=== PATIENT | female | born 1930 | race Caucasian/White ===

== ENCOUNTER 2017-04-30 16:55 | Inpatient (IN) ==
[2017-04-30] MEDS ORDERED: 0.9 % Sodium Chloride 1,000 ML IVC ONE (17:03)
[2017-04-30 17:19] LABS: Basophils % 0.3 %; Hematocrit 33.6 % (35.3-44.9); Hemoglobin 11.9 g/dL (11.5-15.4); Immature Granulocytes % 0.5 % (0-4); Lymphocytes # 0.8 K/mcL (0.6-4.6); Lymphocytes % 22.8 %; Mean Corpuscular HGB Conc 35.4 g/dL (31.6-35.5); Mean Corpuscular Hemoglobin 33.1 pg (28.0-33.3); Mean Corpuscular Volume 93.6 fL (83.0-100.0); Mean Platelet Volume 10.6 fL (9.4-12.4); Monocytes # 0.4 K/mcL (0.0-1.3); Monocytes % 11.5 %; Neutrophils # 2.4 K/mcL (1.6-8.9); Platelet Count 110 K/mcL (140-400); Red Blood Count 3.59 M/mcL (3.82-4.97); Segmented Neutrophils % 64.9 %
[2017-04-30 17:24] LABS: Bilirubin,Urine Negative (Negative); Blood,Urine Negative (Negative); Clarity,Urine Clear (Clear); Color,Urine Yellow (Yellow); Glucose,Urine (UA) Normal (Normal); Ketones,Urine Negative (Negative); Leukocyte Esterase,Urine Negative (Negative); Nitrite,Urine Negative (Negative); PH,Urine 6.5 pH Units (5.0-8.0); Protein,Urine Trace mg/dL (Neg-Trace); Specific Gravity,Urine 1.021 (1.010-1.025); Urobilinogen,Urine Normal (Normal)
--- NOTE | 2017-04-30 17:32 | Emergency Department Note ---
Disposition Clinical Impression: Influenza, Hypoxia, Elevated troponin Disposition: Admitted As Inpatient Condition: Good SOB HPI - General Chief Complaint: ED Shortness of Breath/Dyspnea Stated Complaint: SOB Time Seen by Provider: 04/30/17 16:59 Source: patient Mode of arrival: EMS Limitations: no limitations Nursing Notes Reviewed: Yes Vital Signs Reviewed: Yes - History of Present Illness 86-year-old female history of arthritis, hypertension presents to the ER via EMS from urgent care due to shortness of breath and cough. Patient states 5 days of cough as well as productive sputum and shortness of breath. No sick contacts. Reports fevers at urgent care will for which she received Tylenol prior to arrival. Denies any recent illness or hospitalization. She felt nauseous today and did not want to eat. No abdominal pain. No vomiting or diarrhea. No dysuria or hematuria. No other complaints. Pt Subjective Complaint: shortness of breath, cough Onset (ago): day(s) Context: recent illness Severity: moderate Consistency/Duration: constant Improves with: nothing Worsens with: nothing Associated symptoms: Reports: fever, cough, sputum production Treatment prior to arrival: none Cough present: Yes Cough Description: Involuntary Cough Frequency: Intermittent - Related Data Home oxygen amount: none Home Medications Medication Instructions Recorded Confirmed Fenofibrate [Tricor] 54 mg PO QAM 02/14/15 02/25/15 Metoprolol [Lopressor] 50 mg PO BID 02/14/15 02/25/15 Omeprazole [PriLOSEC] 20 mg PO QAM 02/14/15 02/25/15 Polyethylene Glycol 3350 [MiraLAX] 17 gm PO DAILY 02/14/15 02/25/15 TraZODone 50 mg PO HS 02/14/15 02/25/15 Previous Rx's Medication Instructions Recorded Ciprofloxacin [Cipro] 500 mg PO BID #10 tablet 02/28/15 LORazepam [Ativan] 0.5 mg PO HS #4 tablet 02/28/15 traMADol [Ultram] 50 mg PO Q6HR PRN #28 tablet 02/28/15 Allergies Allergy/AdvReac Type Severity Reaction Status Date / Time magnesium Allergy See Verified 04/30/17 16:58 Comments Penicillins [PCN] Allergy Heartburn Verified 04/30/17 16:58 aspirin AdvReac Gastrointestinal Verified 04/30/17 16:57 Upset All systems ED: reviewed and negative except as stated. Constitutional: Reports: fever, chills, weakness Cardiovascular: Denies: chest pain Respiratory: Reports: cough, dyspnea, sputum production Gastrointestinal: Reports: nausea. Denies: abdominal pain, vomiting, diarrhea Past Medical History - Past Medical History Attestation: Yes The following information was validated with the patient. Source: patient Medical history: Reports: arthritis, cancer, GERD, hypertension, liver disease, RA, TIA Surgical history: Reports: appendectomy, cancer surgery (colon) Psychiatric history: Reports: anxiety - Social History Smoking Status: Never smoker Smokeless Tobacco Status: No Alcohol use: Reports: none Drug use: Reports: none Physical Exam - General Limitations: no limitations General appearance: alert, in no apparent distress - Head Head exam: atraumatic, normocephalic, other (Abrasion over the nasal bridge) - Eye Eye exam: Present: normal appearance - ENT ENT exam: normal exam - Neck Neck exam: Present: normal inspection - Chest Chest inspection: Present: normal inspection, symmetric chest wall rise - Respiratory Respiratory exam: Present: other (Rhonchi on the right. Clear on the left) - Cardiovascular Cardiovascular exam: Present: regular rate, normal rhythm, normal heart sounds - Abdominal Exam Abdominal exam: Present: soft, Non-Tender. Absent: tenderness - Extremities Exam Extremities exam: Present: normal inspection, full ROM - Expanded Upper Extremity Exam Shoulder exam: Present: normal inspection, full ROM Arm exam: Present: normal inspection, full ROM Elbow exam: Present: normal inspection, full ROM Forearm/Wrist exam: Present: normal inspection, full ROM Hand exam: Present: normal inspection, full ROM - Expanded Lower Extremity Exam Hip/Pelvis exam: Present: normal inspection, full ROM Upper leg exam: Present: normal inspection, full ROM Knee exam: Present: normal inspection, full ROM Lower leg exam: Present: normal inspection, full ROM Ankle exam: Present: normal inspection, full ROM Foot/toe exam: Present: normal inspection, full ROM - Skin Skin exam: Present: warm, dry, intact Course Course Narrative: Patient seen and examined. Vital signs reviewed. We will obtain EKG, chest x- ray as well as labs including troponin. We will send urinalysis. She does report that she fell out of bed 2 days ago and has an abrasion over her nose. CT scan of the head and cervical spine ordered. - Reevaluation(s) Reevaluation #1: Discussed results of imaging and labs with the patient. Vital Signs Temperature 100.5 F H 04/30/17 16:59 Pulse Rate 80 04/30/17 16:59 Respiratory Rate 22 04/30/17 16:59 Blood Pressure 130/81 04/30/17 16:59 O2 Sat by Pulse Oximetry 94 04/30/17 16:59 Temperature 98.8 F 04/30/17 20:44 Pulse Rate 75 04/30/17 20:44 Respiratory Rate 16 04/30/17 20:44 Blood Pressure 143/61 04/30/17 20:44 O2 Sat by Pulse Oximetry 93 04/30/17 20:44 Oxygen Delivery Oxygen Delivery Room Air Shortness of Breath/Dyspnea - MDM Narrative Medical decision making narrative: 86-year-old female presents to the ER from urgent care due to cough shortness of breath fever and hypoxia. Noted to be in the high 80s at urgent care. Also febrile at that time. Symptoms for 5 days. She has had a cough with productive sputum. She is well-appearing here. She also had a fall out of her bed a few days ago. Imaging reviewed. She does have an elevated troponin of 0.05. Currently chest pain-free. Admitted to the hospitalist service for influenza, hypoxia, elevated troponin. - Lab Data Lab results reviewed: Yes I reviewed the patient's lab results. Result diagrams: 04/30/17 17:11 04/30/17 17:11 Lab Results 04/30/17 04/30/17 04/30/17 Range/Units 17:11 17:11 17:11 WBC 3.6 L (4.3-11.1) K/mcL RBC 3.59 L (3.82-4.97) M/mcL Hgb 11.9 (11.5-15.4) g/dL Hct 33.6 L (35.3-44.9) % MCV 93.6 (83.0-100.0) fL MCH 33.1 (28.0-33.3) pg MCHC 35.4 (31.6-35.5) g/dL RDW 12.0 (11.5-14.5) % Plt Count 110 L (140-400) K/mcL MPV 10.6 (9.4-12.4) fL Immature Gran % 0.5 (0-4) % Seg Neutrophils % 64.9 % Lymphocytes % 22.8 % Monocytes % 11.5 % Eosinophils % 0.0 % Basophils % 0.3 % Neutrophils # 2.4 (1.6-8.9) K/mcL Lymphocytes # 0.8 (0.6-4.6) K/mcL Monocytes # 0.4 (0.0-1.3) K/mcL Eosinophils # 0.0 (0.0-0.6) K/mcL Basophils # 0.0 (0.0-0.2) K/mcL Sodium 131 L (136-145) mEq/L Potassium 3.2 L (3.5-5.1) mEq/L Chloride 103 (98-107) mEq/L Carbon Dioxide 21 L (23-29) mEq/L BUN 7 L (8-23) mg/dL Creatinine 0.71 (0.60-1.20) mg/dL Est GFR ( Amer) > 60 (> 60) Est GFR (Non-Af Amer) > 60 (> 60) BUN/Creatinine Ratio 10 (6-26) Glucose 113 H (70-105) mg/dL Calculated Osmolality 271 L (280-300) Calcium 7.4 L (8.6-10.3) mg/dL Total Bilirubin (0.3-1.0) mg/dL Direct Bilirubin (0.0-0.2) mg/dL Indirect Bilirubin (0.0-1.2) mg/dL AST (13-39) Units/L ALT (7-52) Units/L Alkaline Phosphatase (34-104) Units/L Troponin I 0.05 H* (< 0.04) ng/mL B-Natriuretic Peptide (Less than 100) pg/mL Serum Total Protein (6.4-8.9) g/dL Albumin (3.5-5.7) g/dL Globulin (2.4-3.5) g/dL Albumin/Globulin Ratio (1.1-2.2) Urine Color (Yellow) Urine Clarity (Clear) Urine pH (5.0-8.0) pH Units Ur Specific [place] (1.010-1.025) Urine Protein (Neg-Trace) mg/dL Urine Glucose (UA) (Normal) mg/dL Urine Ketones (Negative) mg/dL Urine Blood (Negative) Urine Nitrite (Negative) Urine Bilirubin (Negative) Urine Urobilinogen (Normal) mg/dL Ur Leukocyte Esterase (Negative) Urine Microscopic RBC (0-3) per hpf Urine Microscopic WBC (0-3) per hpf Ur Squamous Epith Cells (None-Few) per lpf Urine Bacteria (None-Few) per hpf Hyaline Casts (None-Few) per lpf Ur Culture Indicated? (NO) 04/30/17 04/30/17 04/30/17 Range/Units 17:11 17:11 17:15 WBC (4.3-11.1) K/mcL RBC (3.82-4.97) M/mcL Hgb (11.5-15.4) g/dL Hct (35.3-44.9) % MCV (83.0-100.0) fL MCH (28.0-33.3) pg MCHC (31.6-35.5) g/dL RDW (11.5-14.5) % Plt Count (140-400) K/mcL MPV (9.4-12.4) fL Immature Gran % (0-4) % Seg Neutrophils % % Lymphocytes % % Monocytes % % Eosinophils % % Basophils % % Neutrophils # (1.6-8.9) K/mcL Lymphocytes # (0.6-4.6) K/mcL Monocytes # (0.0-1.3) K/mcL Eosinophils # (0.0-0.6) K/mcL Basophils # (0.0-0.2) K/mcL Sodium (136-145) mEq/L Potassium (3.5-5.1) mEq/L Chloride (98-107) mEq/L Carbon Dioxide (23-29) mEq/L BUN (8-23) mg/dL Creatinine (0.60-1.20) mg/dL Est GFR ( Amer) (> 60) Est GFR (Non-Af Amer) (> 60) BUN/Creatinine Ratio (6-26) Glucose (70-105) mg/dL Calculated Osmolality (280-300) Calcium (8.6-10.3) mg/dL Total Bilirubin 0.4 (0.3-1.0) mg/dL Direct Bilirubin 0.2 (0.0-0.2) mg/dL Indirect Bilirubin 0.2 (0.0-1.2) mg/dL AST 50 H (13-39) Units/L ALT 26 (7-52) Units/L Alkaline Phosphatase 31 L (34-104) Units/L Troponin I (< 0.04) ng/mL B-Natriuretic Peptide 87 (Less than 100) pg/mL Serum Total Protein 5.1 L (6.4-8.9) g/dL Albumin 3.1 L (3.5-5.7) g/dL Globulin 2.0 L (2.4-3.5) g/dL Albumin/Globulin Ratio 1.6 (1.1-2.2) Urine Color Yellow (Yellow) Urine Clarity Clear (Clear) Urine pH 6.5 (5.0-8.0) pH Units Ur Specific [place] 1.021 (1.010-1.025) Urine Protein Trace (Neg-Trace) mg/dL Urine Glucose (UA) Normal (Normal) mg/dL Urine Ketones Negative (Negative) mg/dL Urine Blood Negative (Negative) Urine Nitrite Negative (Negative) Urine Bilirubin Negative (Negative) Urine Urobilinogen Normal (Normal) mg/dL Ur Leukocyte Esterase Negative (Negative) Urine Microscopic RBC 0-3 (0-3) per hpf Urine Microscopic WBC 0-3 (0-3) per hpf Ur Squamous Epith Cells Moderate H (None-Few) per lpf Urine Bacteria None Seen (None-Few) per hpf Hyaline Casts None Seen (None-Few) per lpf Ur Culture Indicated? NO (NO) - Radiology Data Radiology results reviewed: Yes I reviewed the patient's radiology results. Chest X-Ray 04/30/17 17:03 IMPRESSION: No acute cardiopulmonary disease. D/ / Shereen Oden MD / Shereen Oden MD Interpreting Provider: Shereen Oden MD Chest X-Ray 04/30/17 17:03 IMPRESSION: No acute cardiopulmonary disease. D/ / Shereen Oden MD / Shereen Oden MD Interpreting Provider: Shereen Oden MD Head CT 04/30/17 17:03 IMPRESSION: No acute intracranial abnormality. D/ / Zackary Thurman / Zackary Thurman Interpreting Provider: Zackary Thurman Cervical Spine CT 04/30/17 17:04 IMPRESSION: No acute abnormality of the cervical spine. Moderate multilevel degenerative changes. D/ / 04/30/2017 19:21:29 Shereen Oden MD / hong Interpreting Provider: Shereen Oden MD - EKG Data EKG attestation: Yes I reviewed and interpreted this EKG. EKG results narrative: EKG demonstrates sinus rhythm with a rate of 70 bpm. Normal axis. Normal intervals. Normal R-wave progression. No gross ST elevations or depressions. No acute ischemic findings. S.B.A.R. - S.B.A.R. Situation: Demographics, MOA Background: Presenting Complaint, Relevant PMH, Meds, & Allergies Assessment: Vital Signs, Course and respsone to treatment, Exam Concerns, Patient/Family Expectation, Pertinant Lab Results Recommendation: Barrier(s) to disposition, Recommendation based on pending studies, treatments, or consults S.B.A.R. Report Given to: Dr. Luque Attestation Statement - Attestation Attestation: I examined this patient and my medical decision-making was reviewed with the Resident Physician. I agree with the documented findings, disposition and treatment plan as described except to the extent set forth below. 86-year-old female since he came from urgent care because of dyspnea. She has had cough and congestion for the past couple of days along with low-grade fever. She also fell from her bed earlier this morning and had struggled to get up. Complains of pain of her head, neck as well as generalized myalgias. She presented to urgent care and was found to be hypoxic therefore prompting them to send her to the emergency department. She symptomatically improved with bronchodilator treatments. Cough is nonproductive. No known ill exposures. No recent illnesses travel. No chest pain. No vomiting or diarrhea. Elderly female in no apparent distress. Oropharynx is clear abuse number slightly dry. Neck is supple. Trachea midline no JVD. Chest with mild, scattered expiratory wheezes heard no focal consolidation. Cardiac exam regular without murmurs. Abdomen soft, nondistended nontender. Extremity is warm and dry. She does have an abrasion across the bridge of her nose. No facial deformity CT imaging of her head and neck were negative for any acute traumatic process. Chest shows negative. Nasal swab positive for influenza A. She also does not have mild elevation of her troponin that did not correlate with any acute EKG changes. This is likely secondary to the hypoxia that she had 2 the day. She will be admitted for serial enzymes as well as further symptomatic treatment and supplemental oxygen. The high probability of a clinically significant, sudden or life threatening deterioration of the [cardiopulmonary] system(s) required my full and direct attention, intervention and personal management. The aggregate critical care time was [10] minutes. This time is in addition to time spent performing reported procedures but includes the following: [x] Data Review and interpretation [x] Patient assessment and monitoring of vital signs [x] Documentation [x] Medication orders and management
[2017-04-30 17:37] LABS: Albumin 3.1 g/dL (3.5-5.7); Albumin/Globulin Ratio 1.6 (1.1-2.2); BUN/Creatinine Ratio 10 (6-26); Bilirubin,Direct 0.2 mg/dL (0.0-0.2); Bilirubin,Indirect 0.2 mg/dL (0.0-1.2); Bilirubin,Total 0.4 mg/dL (0.3-1.0); Blood Urea Nitrogen 7 mg/dL (8-23); Calcium 7.4 mg/dL (8.6-10.3); Carbon Dioxide 21 mEq/L (23-29); Chloride 103 mEq/L (98-107); Glucose 113 mg/dL (70-105); Osmolality,Calculated 271 (280-300); Potassium 3.2 mEq/L (3.5-5.1); Sodium 131 mEq/L (136-145); Total Protein 5.1 g/dL (6.4-8.9); eGFR For African Americans > 60 (> 60); eGFR For Non-African Americans > 60 (> 60)
[2017-04-30 17:45] LABS: Bacteria,Urine None Seen per hpf (None-Few); Hyaline Casts,Urine None Seen per lpf (None-Few); RBC,Urine 0-3 per hpf (0-3); Squamous Epithelial Cell,Urine Moderate per lpf (None-Few); WBC,Urine 0-3 per hpf (0-3)
--- NOTE | 2017-04-30 20:58 | Internal Med History&Physical ---
<Elizabeth Marin - Last Filed: 04/30/17 21:27> Date of Encounter: 04/30/17 Time of Encounter: 20:56 Assessment and Plan (1) Generalized weakness Current visit: No Status: Acute Secondary to illness with the flu Fell out of bed this morning at home PT OT when medically stable bathroom privileges with assistance (2) Influenza Current visit: No Status: Acute Tamiflu IV fluids (3) Hypoxia Current visit: No Status: Acute O2 as needed to maintain saturations greater than 88% DuoNeb every 6 hours as needed Cough control Continuous pulse oximetry (4) Hypokalemia Current visit: No Status: Acute Replacement and recheck levels Internal Medicine - H&P: HPI Chief complaint: SOB, weakness Admitted From: Emergency Dept Plans for Post Hospital Care: Home History of present illness: Ms. Alvarenga is a 86 year old female who presented to the ER via EMS from urgent care due to shortness of breath and a cough. The patient is sitting up in a stretcher on some O2 nasal cannula in no acute distress. The patient has a history significant for arthritis and hypertension. She has had a five-day course of the cough productive for a thin yellow sputum with increasing shortness of breath, she stated she had fever, muscle aches, chills, headache, anorexia, nausea but no vomiting, abdominal pain, dysuria, or diarrhea. She states she feels weak and does not feel like eating. Her son who is at the bedside was recently diagnosed with the flu. The patient is positive for influenza type A. Discussed CODE STATUS and living will, the patient states she does not want any heroics and would like to be a DNR. She is aware of admission and plan of care and all her questions were answered. Her son had no questions either. 8 Past Med Surg Social Fam HX - Past Medical History Medical history: arthritis, cancer, GERD, hypertension, liver disease, RA, TIA Psychiatric history: anxiety - Past Surgical History Surgical History: appendectomy, cancer surgery (colon) - Social History Smoking Status: Never smoker Smokeless Tobacco Status: No Alcohol use: none Drug use: none Occupational status: retired Current living situation: Home - Independent Activity Level: Independent ambulation - Family History Father Living Status: Hx Family Cardiac Disorders: Yes Hx Family Endocrine Disorder: Yes Mother Living Status: Hx Family Cardiac Disorders: Yes Hx Family Endocrine Disorder: Yes (diabetes) - Additional Family History Additional family history: Reviewed and noncontributory to this event Internal Medicine - H&P: Meds Fenofibrate [Tricor] 54 mg PO QAM 02/14/15 [History] Metoprolol [Lopressor] 50 mg PO BID 02/14/15 [History] Omeprazole [PriLOSEC] 20 mg PO QAM 02/14/15 [History] Polyethylene Glycol 3350 [MiraLAX] 17 gm PO DAILY 02/14/15 [History] TraZODone 50 mg PO HS 02/14/15 [History] Ciprofloxacin [Cipro] 500 mg PO BID #10 tablet 02/28/15 [Rx] LORazepam [Ativan] 0.5 mg PO HS #4 tablet 02/28/15 [Rx] traMADol [Ultram] 50 mg PO Q6HR PRN #28 tablet 02/28/15 [Rx] 3 Allergy/AdvReac Type Severity Reaction Status Date / Time magnesium Allergy See Verified 04/30/17 16:58 Comments Penicillins [PCN] Allergy Heartburn Verified 04/30/17 16:58 aspirin AdvReac Gastrointestinal Verified 04/30/17 16:57 Upset All Systems PM: A 10-system review of systems was performed and is negative for pertinent findings except as documented above in the HPI. - Constitutional Constitutional: as per HPI, anorexia, chills, fatigue, fever(s), malaise, weakness - EENT Eyes: no change in vision, no discharge, no pain, no photophobia Ears: no ear discharge, no ear pain, no tinnitus Nose, mouth and throat: no dysphagia, no nasal discharge, no neck pain, no sore throat - Cardiovascular Cardiovascular ROS IM: no chest pain, no diaphoresis, no dyspnea, no lightheadedness, no palpitations, no syncope - Respiratory Respiratory: cough, dyspnea on exertion, chest congestion, no dyspnea, no wheezing, no excessive phlegm production - Gastrointestinal Gastrointestinal: nausea, no abdominal pain, no diarrhea, no hematemesis, no hematochezia, no melena, no vomiting - Genitourinary Genitourinary: no change in urinary stream, no dysuria, no flank pain, no hematuria - Musculoskeletal Musculoskeletal ROS IM: no numbness, no tingling - Integumentary Integumentary IM: no rash, no unusual bruising - Neurological Neurological ROS: no confusion, no convulsions, no focal weakness, no numbness, no tingling, no tremor(s) - Hematologic/Lymphatic Hematologic/Lymphatic: no easy bruising - Constitutional Vitals: Temp Pulse Resp BP Pulse Ox 100.5 F H 69 18 157/80 96 04/30/17 16:59 04/30/17 19:33 04/30/17 20:38 04/30/17 20:38 04/30/17 19:33 General appearance: Present: A&O X 3, pleasant, no acute distress, answers questions appropriately - Head Head exam: Present: atraumatic, normocephalic Additional comments: Abrasion on the bridge of the nose from fall - Eye Eye exam: Present: PERRL, conjuntiva pink, sclera anicteric Pupils: Present: PERRL - Neck Neck exam general surgery: Present: supple, trachea midline. Absent: lymphadenopathy - Respiratory Respiratory exam: Present: rhonchi. Absent: accessory muscle use, rales, wheezes Additional comments: Breast sounds are coarse and slightly decreased bilaterally with rhonchi on the left base, cough on forced expiration nonproductive at this time. - Cardiovascular Cardiovascular exam: Present: +S1, +S2. Absent: diastolic murmur, gallop, rubs , systolic murmur - GI/Abdominal GI/Abdominal exam: Present: normal bowel sounds, soft, no peritoneal signs. Absent: distended, tenderness - Extremities Exam Extremities exam: Present: warm. Absent: calf tenderness, cyanotic, pedal edema - Neurological Exam Neurological exam: Present: oriented X3, no focal deficits. Absent: pronater drift, facial droop, speech deficit - Skin Skin exam: Present: dry, intact, warm (Frail elderly skin) Internal Med - H&P Results - Labs CBC & Chem 7: 04/30/17 17:11 04/30/17 17:11 Labs: Short CBC 04/30/17 Range/Units 17:11 WBC 3.6 L (4.3-11.1) K/mcL Hgb 11.9 (11.5-15.4) g/dL Hct 33.6 L (35.3-44.9) % Plt Count 110 L (140-400) K/mcL Neutrophils # 2.4 (1.6-8.9) K/mcL BMP 04/30/17 17:11 Sodium 131 L Potassium 3.2 L Chloride 103 Carbon Dioxide 21 L BUN 7 L Creatinine 0.71 Glucose 113 H Calcium 7.4 L Cardiac Enzymes 04/30/17 Range/Units 17:11 Troponin I 0.05 H* (< 0.04) ng/mL Liver Function 04/30/17 Range/Units 17:11 Total Bilirubin 0.4 (0.3-1.0) mg/dL Direct Bilirubin 0.2 (0.0-0.2) mg/dL AST 50 H (13-39) Units/L ALT 26 (7-52) Units/L Alkaline Phosphatase 31 L (34-104) Units/L Albumin 3.1 L (3.5-5.7) g/dL Urine 04/30/17 Range/Units 17:15 Urine Color Yellow (Yellow) Urine Clarity Clear (Clear) Urine pH 6.5 (5.0-8.0) pH Units Ur Specific [place] 1.021 (1.010-1.025) Urine Protein Trace (Neg-Trace) mg/dL Urine Glucose (UA) Normal (Normal) mg/dL - Impressions ITS Impressions Chest X-Ray 04/30/17 17:03 IMPRESSION: No acute cardiopulmonary disease. D/ / Shereen Oden MD / Shereen Oden MD Interpreting Provider: Shereen Oden MD Head CT 04/30/17 17:03 IMPRESSION: No acute intracranial abnormality. D/ / Zackary Thurman / Zackary Thurman Interpreting Provider: Zackary Thurman Cervical Spine CT 04/30/17 17:04 IMPRESSION: No acute abnormality of the cervical spine. Moderate multilevel degenerative changes. D/ / 04/30/2017 19:21:29 Shereen Oden MD / hong Interpreting Provider: Shereen Oden MD <Charley Luque - Last Filed: 04/30/17 21:51> Date of Encounter: 04/30/17 Internal Medicine - H&P: HPI History of present illness: Ms. Alvarenga is a 86 year old female All Systems PM: A 10-system review of systems was performed and is negative for pertinent findings except as documented above in the HPI. - Constitutional Vitals: Temp Pulse Resp BP Pulse Ox 98.8 F 75 16 143/61 93 04/30/17 20:44 04/30/17 20:44 04/30/17 20:44 04/30/17 20:44 04/30/17 20:44 Internal Med - H&P Results - Labs CBC & Chem 7: 04/30/17 17:11 04/30/17 17:11 - Attending Attestation I have personally performed a face to face evaluation on this patient. I have reviewed and agree with the care plan. History and Exam by me shows: 86 yo female who presents with influenza viral PNA. Reports respiratory symptoms consisting of coughing 2-3 days, fever > 102, sore throat, muscle aches and headaches. Lives at home by herself, uses cane/walker. Recent fall. XR/XR chest 1V portable IMPRESSION: No acute cardiopulmonary disease. CT/CT head/brain wo con IMPRESSION: No acute intracranial abnormality. CT/CT cervical spine wo con IMPRESSION: No acute abnormality of the cervical spine. Moderate multilevel degenerative changes. A/P Influenza viral PNA - IVF - tamiflu - duonebs - high risk for decompensation give age Mild hypokalemia - IVF with K Fall - trauma screen in the ED wnl - PT / OT eval troponemia likely related to acute illness - no acs - trend trop - EKG personally reviewed with araseli Medina, nsr
[2017-04-30] MEDS ORDERED: Ondansetron 4 MG/2 ML VIAL IVP PRN (21:16)
[2017-04-30] MEDS ORDERED: Naloxone 0.4 MG/ML INJ IVP PRN (21:16)
[2017-04-30] MEDS ORDERED: 0.9 % Sodium Chloride w KCl 20 MEQ/1,000 ML MLS IVC SCH (21:30)
[2017-04-30] MEDS: *HR* LORazepam 1 MG TABLET PO SCH (22:48)
[2017-04-30] MEDS: traZODone 50 MG TABLET PO SCH (22:48)
[2017-04-30] MEDS: Ipratropium/Albuterol Neb 3 ML IH SCH (23:41)
[2017-05-01] MEDS: Ipratropium/Albuterol Neb 3 ML IH SCH ×4 (04:25→23:10)
[2017-05-01 04:59] LABS: Basophils % 0.3 %; Hematocrit 36.7 % (35.3-44.9); Hemoglobin 12.7 g/dL (11.5-15.4); Lymphocytes # 1.9 K/mcL (0.6-4.6); Lymphocytes % 58.3 %; Mean Corpuscular HGB Conc 34.6 g/dL (31.6-35.5); Mean Corpuscular Hemoglobin 32.4 pg (28.0-33.3); Mean Corpuscular Volume 93.6 fL (83.0-100.0); Mean Platelet Volume 10.7 fL (9.4-12.4); Monocytes # 0.4 K/mcL (0.0-1.3); Monocytes % 11.8 %; Platelet Count 106 K/mcL (140-400); Red Blood Count 3.92 M/mcL (3.82-4.97); Red Cell Distribution Width 12.3 % (11.5-14.5); Segmented Neutrophils % 29.6 %
[2017-05-01 05:14] LABS: BUN/Creatinine Ratio 8 (6-26); Blood Urea Nitrogen 6 mg/dL (8-23); Calcium 8.4 mg/dL (8.6-10.3); Carbon Dioxide 26 mEq/L (23-29); Chloride 105 mEq/L (98-107); Glucose 113 mg/dL (70-105); Osmolality,Calculated 284 (280-300); Potassium 3.5 mEq/L (3.5-5.1); Sodium 138 mEq/L (136-145); eGFR For African Americans > 60 (> 60); eGFR For Non-African Americans > 60 (> 60)
--- NOTE | 2017-05-01 13:27 | Internal Med Progress Note ---
Date of Encounter: 05/01/17 Time of Encounter: 13:24 - Assessment and plan (1) Influenza A Current Visit: Yes Status: Acute Assessment and plan: Severe debility secondary to influenza A with severe upper airway congestion and possible volume overload Continue Tamiflu day #2 Check an echocardiogram Start Lasix IV, strict I's and O's and daily weight (2) Leukopenia Current Visit: Yes Status: Acute Qualifiers: Neutropenia type: unspecified Qualified Code(s): D70.9 - Neutropenia, unspecified (3) Debility Current Visit: Yes Status: Acute Assessment and plan: severe debility due to Influenza A Most likely will require rehabilitation after this hospitalization (4) Hyperlipidemia Current Visit: No Status: Inactive Qualifiers: Hyperlipidemia type: pure hypercholesterolemia Qualified Code(s): E78.00 - Pure hypercholesterolemia, unspecified; E78.0 - Pure hypercholesterolemia (5) Hypokalemia Current Visit: No Status: Acute Assessment and plan: Replete as needed - Subjective Interval history: Elieser family week and tremulous, feels short of breath, denies any chest pain, no abdominal pain, no dysuria - Constitutional Vitals: Temp Pulse Resp BP Pulse Ox 98.6 F 80 16 134/73 94 05/01/17 11:32 05/01/17 11:32 05/01/17 11:32 05/01/17 11:32 05/01/17 11:32 General appearance: Present: A&O X 3, pleasant, no acute distress, answers questions appropriately - Head Head exam: Present: atraumatic, normocephalic - Eye Eye exam: Present: PERRL, conjuntiva pink, sclera anicteric Pupils: Present: PERRL - Neck Neck exam general surgery: Present: supple, trachea midline. Absent: lymphadenopathy - Respiratory Respiratory exam: Present: CTAB, rales (Diffuse crackles). Absent: accessory muscle use, rhonchi, wheezes - Cardiovascular Cardiovascular exam: Present: RRR, +S1, +S2. Absent: diastolic murmur, gallop, rubs, systolic murmur - GI/Abdominal GI/Abdominal exam: Present: normal bowel sounds, soft, no peritoneal signs. Absent: distended, tenderness - Extremities Exam Extremities exam: Present: warm, radial pulses palpable and symmetrical. Absent : calf tenderness, cyanotic, pedal edema - Neurological Exam Neurological exam: Present: CN II-XII intact, oriented X3, no focal deficits. Absent: pronater drift, facial droop, speech deficit - Skin Skin exam: Present: dry, intact Internal Medicine: Result - Labs CBC & Chem 7: 05/01/17 04:50 05/01/17 04:50 Labs: Short CBC 05/01/17 Range/Units 04:50 WBC 3.2 L (4.3-11.1) K/mcL Hgb 12.7 (11.5-15.4) g/dL Hct 36.7 (35.3-44.9) % Plt Count 106 L (140-400) K/mcL Neutrophils # 1.0 L (1.6-8.9) K/mcL BMP 05/01/17 04:50 Sodium 138 Potassium 3.5 Chloride 105 Carbon Dioxide 26 BUN 6 L Creatinine 0.78 Glucose 113 H Calcium 8.4 L Cardiac Enzymes 05/01/17 Range/Units 04:50 Troponin I 0.05 H* (< 0.04) ng/mL Consult Discharge Plan - Plan
[2017-05-01] MEDS: Furosemide 20 MG/2 ML VIAL IVP SCH ×2 (16:51→17:00)
[2017-05-01] MEDS: traZODone 50 MG TABLET PO SCH (21:09)
[2017-05-01] MEDS: *HR* LORazepam 1 MG TABLET PO SCH (21:09)
[2017-05-01] MEDS: Acetaminophen 325 MG TABLET PO PRN (22:45)
[2017-05-02] MEDS: Ipratropium/Albuterol Neb 3 ML IH SCH ×4 (05:06→23:57)
[2017-05-02 06:40] LABS: Hematocrit 39.9 % (35.3-44.9); Hemoglobin 13.5 g/dL (11.5-15.4); Mean Corpuscular HGB Conc 33.8 g/dL (31.6-35.5); Mean Corpuscular Volume 94.5 fL (83.0-100.0); Mean Platelet Volume 10.9 fL (9.4-12.4); Platelet Count 114 K/mcL (140-400); Red Blood Count 4.22 M/mcL (3.82-4.97); Red Cell Distribution Width 12.3 % (11.5-14.5)
[2017-05-02 07:01] LABS: BUN/Creatinine Ratio 9 (6-26); Blood Urea Nitrogen 7 mg/dL (8-23); Calcium 8.5 mg/dL (8.6-10.3); Carbon Dioxide 26 mEq/L (23-29); Chloride 104 mEq/L (98-107); Glucose 122 mg/dL (70-105); Osmolality,Calculated 287 (280-300); Potassium 3.5 mEq/L (3.5-5.1); Sodium 139 mEq/L (136-145); eGFR For African Americans > 60 (> 60); eGFR For Non-African Americans > 60 (> 60)
--- NOTE | 2017-05-02 08:06 | Internal Med Progress Note ---
Date of Encounter: 05/02/17 Time of Encounter: 08:01 - Assessment and plan (1) Influenza A Current Visit: Yes Status: Acute Assessment and plan: Severe debility secondary to influenza A with severe upper airway congestion and possible volume overload Continue Tamiflu day #3 Check an echocardiogram Continue Lasix IV, strict I's and O's and daily weight (2) Leukopenia Current Visit: Yes Status: Acute Qualifiers: Neutropenia type: unspecified Qualified Code(s): D70.9 - Neutropenia, unspecified (3) Debility Current Visit: Yes Status: Acute Assessment and plan: severe debility due to Influenza A Most likely will require rehabilitation ( recommended by PT) after this hospitalization (4) Hyperlipidemia Current Visit: No Status: Inactive Qualifiers: Hyperlipidemia type: pure hypercholesterolemia Qualified Code(s): E78.00 - Pure hypercholesterolemia, unspecified; E78.0 - Pure hypercholesterolemia (5) Hypokalemia Current Visit: No Status: Acute Assessment and plan: Replete as needed - Subjective Interval history: Still very congested. Less week and tremulous, feels less short of breath, denies any chest pain, no abdominal pain, no dysuria - Constitutional Vitals: Temp Pulse Resp BP Pulse Ox 98.4 F 91 16 143/83 96 05/02/17 07:28 05/02/17 03:21 05/02/17 07:28 05/02/17 07:28 05/02/17 07:28 General appearance: Present: A&O X 3, pleasant, no acute distress, answers questions appropriately Exam: - Head Head exam: Present: atraumatic, normocephalic - Eye Eye exam: Present: PERRL, conjuntiva pink, sclera anicteric Pupils: Present: PERRL - Neck Neck exam general surgery: Present: supple, trachea midline. Absent: lymphadenopathy - Respiratory Respiratory exam: Present: CTAB, rales (Diffuse crackles). Absent: accessory muscle use, rhonchi, wheezes - Cardiovascular Cardiovascular exam: Present: RRR, +S1, +S2. Absent: diastolic murmur, gallop, rubs, systolic murmur - GI/Abdominal GI/Abdominal exam: Present: normal bowel sounds, soft, no peritoneal signs. Absent: distended, tenderness - Extremities Exam Extremities exam: Present: warm, radial pulses palpable and symmetrical. Absent : calf tenderness, cyanotic, pedal edema - Neurological Exam Neurological exam: Present: CN II-XII intact, oriented X3, no focal deficits. Absent: pronater drift, facial droop, speech deficit - Skin Skin exam: Present: dry, intact Internal Medicine: Result - Labs CBC & Chem 7: 05/02/17 05:58 05/02/17 05:58 Labs: Short CBC 05/02/17 Range/Units 05:58 WBC 3.7 L (4.3-11.1) K/mcL Hgb 13.5 (11.5-15.4) g/dL Hct 39.9 (35.3-44.9) % Plt Count 114 L (140-400) K/mcL BMP 05/02/17 05:58 Sodium 139 Potassium 3.5 Chloride 104 Carbon Dioxide 26 BUN 7 L Creatinine 0.81 Glucose 122 H Calcium 8.5 L Consult Discharge Plan - Plan Referrals: Fawad Frank MD [Primary Care Provider] -
[2017-05-02] MEDS: Furosemide 20 MG/2 ML VIAL IVP SCH ×2 (09:05→15:29)
[2017-05-02] MEDS: Acetaminophen 325 MG TABLET PO PRN (15:30)
[2017-05-02] MEDS: traMADol 50 MG TABLET PO PRN (18:02)
[2017-05-02] MEDS: *HR* LORazepam 1 MG TABLET PO SCH (21:03)
[2017-05-02] MEDS: traZODone 50 MG TABLET PO SCH (21:04)
[2017-05-02] MEDS ORDERED: *HR* LORazepam 0.5 MG TABLET PO ONE (23:10)
[2017-05-03] MEDS: Ipratropium/Albuterol Neb 3 ML IH SCH ×4 (03:29→23:02)
--- NOTE | 2017-05-03 08:12 | Internal Med Progress Note ---
Date of Encounter: 05/03/17 Time of Encounter: 08:09 - Assessment and plan (1) COPD with acute exacerbation Current Visit: Yes Status: Acute Assessment and plan: Acute COPD exacerbation secondary to influenza A pneumonia Continue Tamiflu Start Solu-Medrol, DuoNeb's May need pulmonary function tests within 4-6 weeks, the patient has never been diagnosed with COPD but is wheezing very loudly (2) Influenza A Current Visit: Yes Status: Acute Assessment and plan: Severe debility secondary to influenza A with severe upper airway congestion and possible volume overload Continue Tamiflu day #4 echocardiogram showed an ejection fraction of 65% with mild diastolic dysfunction Continue Lasix IV, strict I's and O's and daily weight (3) Leukopenia Current Visit: Yes Status: Acute Qualifiers: Neutropenia type: unspecified Qualified Code(s): D70.9 - Neutropenia, unspecified (4) Debility Current Visit: Yes Status: Acute Assessment and plan: severe debility due to Influenza A Most likely will require rehabilitation ( recommended by PT) after this hospitalization (5) Hypokalemia Current Visit: No Status: Acute Assessment and plan: Replete as needed - Subjective Interval history: Still very congested. Wheezing loudly. Very weak and tremulous, feels less short of breath, denies any chest pain, no abdominal pain, no dysuria - Constitutional Vitals: Temp Pulse Resp BP Pulse Ox 98.3 F 96 15 121/74 92 05/03/17 07:46 05/03/17 07:46 05/03/17 07:46 05/03/17 07:46 05/03/17 07:46 General appearance: Present: A&O X 3, pleasant, no acute distress, answers questions appropriately - Head Head exam: Present: atraumatic, normocephalic - Eye Eye exam: Present: PERRL, conjuntiva pink, sclera anicteric Pupils: Present: PERRL - Neck Neck exam general surgery: Present: supple, trachea midline. Absent: lymphadenopathy - Respiratory Respiratory exam: Present: CTAB, rales (Diffuse wheezing and crackles), wheezes. Absent: accessory muscle use, rhonchi - Cardiovascular Cardiovascular exam: Present: RRR, +S1, +S2. Absent: diastolic murmur, gallop, rubs, systolic murmur - GI/Abdominal GI/Abdominal exam: Present: normal bowel sounds, soft, no peritoneal signs. Absent: distended, tenderness - Extremities Exam Extremities exam: Present: warm, radial pulses palpable and symmetrical. Absent : calf tenderness, cyanotic, pedal edema - Neurological Exam Neurological exam: Present: CN II-XII intact, oriented X3, no focal deficits. Absent: pronater drift, facial droop, speech deficit - Skin Skin exam: Present: dry, intact Internal Medicine: Result - Labs CBC & Chem 7: 05/02/17 05:58 05/02/17 05:58 - Impressions Impressions Echocardiogram 05/01/17 13:25 Impressions: LVEF 65%. Mild left ventricular diastolic dysfunction. Basal sigmoid septum. Mild aortic regurgitation. Mild pulmonary hypertension. The aortic root is upper limitis of nml Left Ventricular Wall Motion: Rest Echo Findings All wall segments showed normal motion. Findings: Study Quality * Technically adequate exam. ECG Findings * Sinus rhythm with PACs. Left Ventricle * LVEF 65%. * Mild left ventricular diastolic dysfunction. * Basal sigmoid septum. Right Ventricle * Normal right ventricular structure and function. Left Atrium * Normal left atrial size. Right Atrium * Normal right atrial size. Aortic Valve * Mild aortic regurgitation. Mitral Valve * Normal mitral valve structure and function. Tricuspid Valve * Normal tricuspid valve structure and function. * Mild tricuspid regurgitation. Pulmonic Valve * Pulmonic valve is not well visualized. Aorta * The aortic root is mildly dilated. Pericardium * The pericardium appears normal. IVC * Normal IVC dimensions and inspiratory collapse. Consult Discharge Plan - Plan Referrals: Fawad Frank MD [Primary Care Provider] -
[2017-05-03] MEDS: MethylPREDNISolone 40 MG/ML VIAL IVP SCH ×2 (09:58→18:11)
[2017-05-03] MEDS: Furosemide 20 MG/2 ML VIAL IVP SCH ×2 (09:58→18:11)
--- NOTE | 2017-05-03 15:22 | Electrocardiograph Report ---
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
[2017-05-03] MEDS ORDERED: Simethicone 80 MG TAB.CHEW PO PRN (18:39)
[2017-05-03] MEDS: Oseltamivir Phosphate 30 MG CAPSULE PO SCH (19:58)
[2017-05-03] MEDS: Acetaminophen 325 MG TABLET PO PRN (19:58)
[2017-05-03] MEDS: *HR* LORazepam 1 MG TABLET PO PRN (19:59)
[2017-05-03] MEDS: traZODone 50 MG TABLET PO SCH (19:59)
[2017-05-03] MEDS: *HR* LORazepam 1 MG TABLET PO SCH (20:00)
[2017-05-04] MEDS: traMADol 50 MG TABLET PO PRN (00:14)
[2017-05-04] MEDS: MethylPREDNISolone 40 MG/ML VIAL IVP SCH ×4 (00:14→23:25)
[2017-05-04] MEDS: Ipratropium/Albuterol Neb 3 ML IH SCH ×4 (04:04→22:25)
[2017-05-04 05:50] LABS: Hematocrit 41.9 % (35.3-44.9); Hemoglobin 14.3 g/dL (11.5-15.4); Mean Corpuscular HGB Conc 34.1 g/dL (31.6-35.5); Mean Corpuscular Hemoglobin 31.6 pg (28.0-33.3); Mean Corpuscular Volume 92.7 fL (83.0-100.0); Mean Platelet Volume 10.8 fL (9.4-12.4); Platelet Count 181 K/mcL (140-400); Red Blood Count 4.52 M/mcL (3.82-4.97); Red Cell Distribution Width 12.1 % (11.5-14.5)
[2017-05-04 06:06] LABS: BUN/Creatinine Ratio 20 (6-26); Blood Urea Nitrogen 21 mg/dL (8-23); Calcium 9.9 mg/dL (8.6-10.3); Carbon Dioxide 25 mEq/L (23-29); Chloride 95 mEq/L (98-107); Glucose 166 mg/dL (70-105); Osmolality,Calculated 285 (280-300); Potassium 4.2 mEq/L (3.5-5.1); Sodium 134 mEq/L (136-145); eGFR For African Americans > 60 (> 60); eGFR For Non-African Americans 50 (> 60)
[2017-05-04] MEDS: Oseltamivir Phosphate 30 MG CAPSULE PO SCH ×2 (10:20→20:44)
[2017-05-04] MEDS: Fenofibrate 54 MG TABLET PO SCH (10:20)
[2017-05-04] MEDS: Furosemide 20 MG/2 ML VIAL IVP SCH (10:21)
--- NOTE | 2017-05-04 15:48 | Internal Med Progress Note ---
Date of Encounter: 05/04/17 Time of Encounter: 15:46 - Assessment and plan (1) COPD with acute exacerbation Current Visit: Yes Status: Acute Assessment and plan: Acute COPD exacerbation secondary to influenza A pneumonia Continue Tamiflu, Solu-Medrol, DuoNeb's May need pulmonary function tests within 4-6 weeks, the patient has never been diagnosed with COPD but is wheezing very loudly (2) Influenza A Current Visit: Yes Status: Acute Assessment and plan: Severe debility secondary to influenza A with severe upper airway congestion and possible volume overload Tamiflu day #5, will discontinue today after finished therapy. echocardiogram showed an ejection fraction of 65% with mild diastolic dysfunction Hold Lasix 05/04, strict I's and O's and daily weight (3) Hypokalemia Current Visit: No Status: Acute Assessment and plan: Replete as needed (4) Leukopenia Current Visit: Yes Status: Acute Assessment and plan: stable ranging 3.2-3.8 Qualifiers: Neutropenia type: unspecified Qualified Code(s): D70.9 - Neutropenia, unspecified (5) Debility Current Visit: Yes Status: Acute Assessment and plan: severe debility due to Influenza A Most likely will require rehabilitation ( recommended by PT) after this hospitalization - Subjective Interval history: Patient says weakness somewhat better, breathing improved. Right now bothered by heartburn but would like to eat her food. Denies fevers/chills, chest pain, diaphoresis, n/v. - Constitutional Vitals: Temp Pulse Resp BP Pulse Ox 98.7 F 94 16 145/81 91 05/04/17 14:53 05/04/17 14:53 05/04/17 14:53 05/04/17 14:53 05/04/17 14:53 General appearance: Present: A&O X 3, pleasant, no acute distress, answers questions appropriately Exam: - Head Head exam: Present: atraumatic, normocephalic - Eye Eye exam: Present: PERRL, conjuntiva pink, sclera anicteric Pupils: Present: PERRL - Neck Neck exam general surgery: Present: supple, trachea midline. Absent: lymphadenopathy - Respiratory Respiratory exam: Present: CTAB, rales (Diffuse wheezing and crackles), wheezes. Absent: accessory muscle use, rhonchi - Cardiovascular Cardiovascular exam: Present: RRR, +S1, +S2. Absent: diastolic murmur, gallop, rubs, systolic murmur - GI/Abdominal GI/Abdominal exam: Present: normal bowel sounds, soft, no peritoneal signs. Absent: distended, tenderness - Extremities Exam Extremities exam: Present: warm, radial pulses palpable and symmetrical. Absent : calf tenderness, cyanotic, pedal edema - Neurological Exam Neurological exam: Present: CN II-XII intact, oriented X3, no focal deficits. Absent: pronater drift, facial droop, speech deficit - Skin Skin exam: Present: dry, intact Internal Medicine: Result - Labs CBC & Chem 7: 05/04/17 05:32 05/04/17 05:32 Labs: Short CBC 05/04/17 Range/Units 05:32 WBC 3.8 L (4.3-11.1) K/mcL Hgb 14.3 (11.5-15.4) g/dL Hct 41.9 (35.3-44.9) % Plt Count 181 D (140-400) K/mcL [facility] 05/04/17 05:32 Sodium 134 L Potassium 4.2 Chloride 95 L Carbon Dioxide 25 BUN 21 Creatinine 1.05 Glucose 166 H Calcium 9.9 Consult Discharge Plan - Plan Referrals: Fawad Frank MD [Primary Care Provider] -
[2017-05-04] MEDS: Acetaminophen 325 MG TABLET PO PRN (15:54)
[2017-05-04] MEDS: traZODone 50 MG TABLET PO SCH (20:44)
[2017-05-04] MEDS: *HR* LORazepam 1 MG TABLET PO SCH (20:44)
[2017-05-05] MEDS: Ipratropium/Albuterol Neb 3 ML IH SCH ×4 (04:28→22:26)
[2017-05-05 07:19] LABS: Hematocrit 40.9 % (35.3-44.9); Immature Granulocytes % 0.4 % (0-4); Lymphocytes % 10.5 %; Mean Corpuscular HGB Conc 34.2 g/dL (31.6-35.5); Mean Corpuscular Hemoglobin 32.1 pg (28.0-33.3); Mean Corpuscular Volume 93.8 fL (83.0-100.0); Mean Platelet Volume 10.7 fL (9.4-12.4); Monocytes % 3.9 %; Platelet Count 205 K/mcL (140-400); Red Blood Count 4.36 M/mcL (3.82-4.97); Segmented Neutrophils % 85.1 %
[2017-05-05 07:20] LABS: Basophils % 0.1 %; Lymphocytes # 0.8 K/mcL (0.6-4.6); Monocytes # 0.3 K/mcL (0.0-1.3); Neutrophils # 6.5 K/mcL (1.6-8.9)
[2017-05-05 07:45] LABS: BUN/Creatinine Ratio 31 (6-26); Blood Urea Nitrogen 30 mg/dL (8-23); Calcium 9.9 mg/dL (8.6-10.3); Carbon Dioxide 29 mEq/L (23-29); Chloride 95 mEq/L (98-107); Glucose 127 mg/dL (70-105); Osmolality,Calculated 282 (280-300); Potassium 4.7 mEq/L (3.5-5.1); Sodium 132 mEq/L (136-145); eGFR For African Americans > 60 (> 60); eGFR For Non-African Americans 54 (> 60)
[2017-05-05] MEDS: MethylPREDNISolone 40 MG/ML VIAL IVP SCH ×2 (08:39→17:04)
[2017-05-05] MEDS: Fenofibrate 54 MG TABLET PO SCH (08:39)
[2017-05-05] MEDS: Oseltamivir Phosphate 30 MG CAPSULE PO SCH (08:39)
[2017-05-05] MEDS: Acetaminophen 325 MG TABLET PO PRN (17:02)
[2017-05-05] MEDS: *HR* LORazepam 1 MG TABLET PO PRN (17:03)
--- NOTE | 2017-05-05 18:16 | Internal Med Progress Note ---
Date of Encounter: 05/05/17 Time of Encounter: 18:14 - Assessment and plan (1) Acute respiratory failure with hypoxia Current Visit: Yes Status: Acute Assessment and plan: Fluid overload with undiagnosed COPD in exacerbation. Will need additional diuresis but she is currently hyponatremic. BNP was 87 on admission and now is 207. Will need to diurese cautiously based on repeat BMP. (2) COPD with acute exacerbation Current Visit: Yes Status: Acute Assessment and plan: Acute COPD exacerbation secondary to influenza A pneumonia Continue Tamiflu, Solu-Medrol, DuoNeb's May need pulmonary function tests within 4-6 weeks, the patient has never been diagnosed with COPD but is wheezing very loudly (3) Hyponatremia Current Visit: Yes Status: Acute Assessment and plan: Likely from diuresis that she needed when fluid overloaded. Fluid restrict. Lasix was discontinued 05/04. Recheck in AM. (4) Influenza A Current Visit: Yes Status: Acute Assessment and plan: Severe debility secondary to influenza A with severe upper airway congestion and possible volume overload Tamiflu day #5, will discontinue today after finished therapy. echocardiogram showed an ejection fraction of 65% with mild diastolic dysfunction Hold Lasix 05/04, strict I's and O's and daily weight (5) Hypokalemia Current Visit: No Status: Acute Assessment and plan: Replete as needed (6) Leukopenia Current Visit: Yes Status: Acute Assessment and plan: stable ranging 3.2-3.8 Qualifiers: Neutropenia type: unspecified Qualified Code(s): D70.9 - Neutropenia, unspecified (7) Debility Current Visit: Yes Status: Acute Assessment and plan: severe debility due to Influenza A Most likely will require rehabilitation ( recommended by PT) after this hospitalization - Subjective Interval history: Weakness getting better, breathing fairly unchanged since yesterday. Denies fevers/chills, chest pain, diaphoresis, n/v. - Constitutional Vitals: Temp Pulse Resp BP Pulse Ox 98.8 F 73 16 123/72 98 05/05/17 15:47 05/05/17 15:47 05/05/17 17:19 05/05/17 15:47 05/05/17 17:19 General appearance: Present: A&O X 3, pleasant, no acute distress, answers questions appropriately Exam: - Head Head exam: Present: atraumatic, normocephalic - Eye Eye exam: Present: PERRL, conjuntiva pink, sclera anicteric Pupils: Present: PERRL - Neck Neck exam general surgery: Present: supple, trachea midline. Absent: lymphadenopathy - Respiratory Respiratory exam: Present: CTAB, rales (Diffuse wheezing and crackles), wheezes. Absent: accessory muscle use, rhonchi - Cardiovascular Cardiovascular exam: Present: RRR, +S1, +S2. Absent: diastolic murmur, gallop, rubs, systolic murmur - GI/Abdominal GI/Abdominal exam: Present: normal bowel sounds, soft, no peritoneal signs. Absent: distended, tenderness - Extremities Exam Extremities exam: Present: warm, radial pulses palpable and symmetrical. Absent : calf tenderness, cyanotic, pedal edema - Neurological Exam Neurological exam: Present: CN II-XII intact, oriented X3, no focal deficits. Absent: pronater drift, facial droop, speech deficit - Skin Skin exam: Present: dry, intact Internal Medicine: Result - Labs CBC & Chem 7: 05/05/17 05:48 05/05/17 05:48 Labs: Short CBC 05/05/17 Range/Units 05:48 WBC 7.6 D (4.3-11.1) K/mcL Hgb 14.0 (11.5-15.4) g/dL Hct 40.9 (35.3-44.9) % Plt Count 205 (140-400) K/mcL Neutrophils # 6.5 (1.6-8.9) K/mcL BMP 05/05/17 05:48 Sodium 132 L Potassium 4.7 Chloride 95 L Carbon Dioxide 29 BUN 30 H Creatinine 0.97 Glucose 127 H Calcium 9.9 Consult Discharge Plan - Plan Referrals: Fawad Frank MD [Primary Care Provider] -
[2017-05-05] MEDS: *HR* LORazepam 1 MG TABLET PO SCH (21:33)
[2017-05-05] MEDS: traMADol 50 MG TABLET PO PRN (21:33)
[2017-05-05] MEDS: traZODone 50 MG TABLET PO SCH (21:34)
[2017-05-05] MEDS ORDERED: Artificial Tears SOLN 15 ML BOTTLE BOTH EYES PRN (22:25)
[2017-05-06] MEDS: MethylPREDNISolone 40 MG/ML VIAL IVP SCH ×3 (00:29→15:35)
[2017-05-06] MEDS: Ipratropium/Albuterol Neb 3 ML IH SCH ×4 (03:46→22:27)
[2017-05-06 05:23] LABS: Basophils % 0.1 %; Hematocrit 39.9 % (35.3-44.9); Hemoglobin 13.6 g/dL (11.5-15.4); Immature Granulocytes % 1.3 % (0-4); Lymphocytes # 0.7 K/mcL (0.6-4.6); Lymphocytes % 9.6 %; Mean Corpuscular HGB Conc 34.1 g/dL (31.6-35.5); Mean Corpuscular Hemoglobin 31.8 pg (28.0-33.3); Mean Corpuscular Volume 93.2 fL (83.0-100.0); Mean Platelet Volume 10.4 fL (9.4-12.4); Monocytes # 0.3 K/mcL (0.0-1.3); Monocytes % 4.1 %; Platelet Count 228 K/mcL (140-400); Red Blood Count 4.28 M/mcL (3.82-4.97); Red Cell Distribution Width 12.1 % (11.5-14.5); Segmented Neutrophils % 84.9 %
[2017-05-06 05:41] LABS: BUN/Creatinine Ratio 29 (6-26); Blood Urea Nitrogen 24 mg/dL (8-23); Calcium 9.4 mg/dL (8.6-10.3); Carbon Dioxide 27 mEq/L (23-29); Chloride 99 mEq/L (98-107); Glucose 136 mg/dL (70-105); Osmolality,Calculated 284 (280-300); Potassium 4.6 mEq/L (3.5-5.1); Sodium 134 mEq/L (136-145); eGFR For African Americans > 60 (> 60); eGFR For Non-African Americans > 60 (> 60)
[2017-05-06] MEDS: Fenofibrate 54 MG TABLET PO SCH (09:15)
--- NOTE | 2017-05-06 16:53 | Internal Med Progress Note ---
Date of Encounter: 05/06/17 Time of Encounter: 16:51 - Assessment and plan (1) Acute respiratory failure with hypoxia Current Visit: Yes Status: Acute Assessment and plan: Fluid overload with undiagnosed COPD in exacerbation. Continue steroid therapy to complete a 5 day burst. Tray gray QID Fluid restrict Needed diuresis yesterday but sodium was 132, now it is 134. Will give one dose of IV lasix today and monitor closely. (2) COPD with acute exacerbation Current Visit: Yes Status: Acute Assessment and plan: Acute COPD exacerbation secondary to influenza A pneumonia Continue Tamiflu, Solu-Medrol, DuoNeb's May need pulmonary function tests within 4-6 weeks, the patient has never been diagnosed with COPD but is wheezing very loudly (3) Hyponatremia Current Visit: Yes Status: Acute Assessment and plan: Likely from diuresis that she needed when fluid overloaded. Fluid restrict. Lasix was discontinued 05/04. Recheck in AM. (4) Influenza A Current Visit: Yes Status: Acute Assessment and plan: Severe debility secondary to influenza A with severe upper airway congestion and possible volume overload Tamiflu day #5, will discontinue today after finished therapy. echocardiogram showed an ejection fraction of 65% with mild diastolic dysfunction Hold Lasix 05/04, strict I's and O's and daily weight (5) Hypokalemia Current Visit: No Status: Acute Assessment and plan: Replete as needed (6) Leukopenia Current Visit: Yes Status: Acute Assessment and plan: stable ranging 3.2-3.8 Qualifiers: Neutropenia type: unspecified Qualified Code(s): D70.9 - Neutropenia, unspecified (7) Debility Current Visit: Yes Status: Acute Assessment and plan: severe debility due to Influenza A Most likely will require rehabilitation ( recommended by PT) after this hospitalization - Subjective Interval history: Breathing approaching baseline. Denies fevers/chills, chest pain, diaphoresis , n/v. - Constitutional Vitals: Temp Pulse Resp BP Pulse Ox 98.7 F 69 16 120/74 98 05/06/17 15:45 05/06/17 15:45 05/06/17 15:45 05/06/17 15:45 05/06/17 15:45 General appearance: Present: A&O X 3, pleasant, no acute distress, answers questions appropriately Exam: - Head Head exam: Present: atraumatic, normocephalic - Eye Eye exam: Present: PERRL, conjuntiva pink, sclera anicteric Pupils: Present: PERRL - Neck Neck exam general surgery: Present: supple, trachea midline. Absent: lymphadenopathy - Respiratory Respiratory exam: Present: CTAB, rales (Diffuse wheezing and crackles), wheezes. Absent: accessory muscle use, rhonchi - Cardiovascular Cardiovascular exam: Present: RRR, +S1, +S2. Absent: diastolic murmur, gallop, rubs, systolic murmur - GI/Abdominal GI/Abdominal exam: Present: normal bowel sounds, soft, no peritoneal signs. Absent: distended, tenderness - Extremities Exam Extremities exam: Present: warm, radial pulses palpable and symmetrical. Absent : calf tenderness, cyanotic, pedal edema - Neurological Exam Neurological exam: Present: CN II-XII intact, oriented X3, no focal deficits. Absent: pronater drift, facial droop, speech deficit - Skin Skin exam: Present: dry, intact Internal Medicine: Result - Labs CBC & Chem 7: 05/06/17 04:36 05/06/17 04:36 Labs: Short CBC 05/06/17 Range/Units 04:36 WBC 7.1 (4.3-11.1) K/mcL Hgb 13.6 (11.5-15.4) g/dL Hct 39.9 (35.3-44.9) % Plt Count 228 (140-400) K/mcL Neutrophils # 6.0 (1.6-8.9) K/mcL BMP 05/06/17 04:36 Sodium 134 L Potassium 4.6 Chloride 99 Carbon Dioxide 27 BUN 24 H Creatinine 0.82 Glucose 136 H Calcium 9.4 - VTE Documentation of Mechanical Device: Graduated compression elastic hosiery Consult Discharge Plan - Plan Referrals: Fawad Frank MD [Primary Care Provider] -
[2017-05-06] MEDS ORDERED: Furosemide 20 MG/2 ML VIAL IVP ONE (16:57)
[2017-05-06] MEDS: *HR* LORazepam 1 MG TABLET PO SCH (20:19)
[2017-05-06] MEDS: traZODone 50 MG TABLET PO SCH (20:19)
[2017-05-07] MEDS: MethylPREDNISolone 40 MG/ML VIAL IVP SCH ×4 (00:35→23:51)
[2017-05-07] MEDS: *HR* LORazepam 1 MG TABLET PO PRN ×2 (03:12→23:50)
[2017-05-07] MEDS: Ipratropium/Albuterol Neb 3 ML IH SCH ×4 (04:28→22:38)
[2017-05-07 06:39] LABS: Basophils % 0.2 %; Hematocrit 41.8 % (35.3-44.9); Hemoglobin 14.5 g/dL (11.5-15.4); Immature Granulocytes % 0.9 % (0-4); Lymphocytes # 0.5 K/mcL (0.6-4.6); Lymphocytes % 5.7 %; Mean Corpuscular HGB Conc 34.7 g/dL (31.6-35.5); Mean Corpuscular Hemoglobin 32.4 pg (28.0-33.3); Mean Corpuscular Volume 93.3 fL (83.0-100.0); Mean Platelet Volume 11.6 fL (9.4-12.4); Monocytes # 0.8 K/mcL (0.0-1.3); Monocytes % 8.6 %; Neutrophils # 7.6 K/mcL (1.6-8.9); Platelet Count 156 K/mcL (140-400); Red Blood Count 4.48 M/mcL (3.82-4.97); Segmented Neutrophils % 84.6 %
[2017-05-07 09:43] LABS: BUN/Creatinine Ratio 33 (6-26); Blood Urea Nitrogen 32 mg/dL (8-23); Calcium 9.8 mg/dL (8.6-10.3); Carbon Dioxide 29 mEq/L (23-29); Chloride 97 mEq/L (98-107); Glucose 117 mg/dL (70-105); Osmolality,Calculated 286 (280-300); Potassium 4.6 mEq/L (3.5-5.1); Sodium 134 mEq/L (136-145); eGFR For African Americans > 60 (> 60); eGFR For Non-African Americans 54 (> 60)
[2017-05-07] MEDS: Fenofibrate 54 MG TABLET PO SCH (10:25)
[2017-05-07] MEDS ORDERED: Furosemide 20 MG/2 ML VIAL IVP ONE (11:02)
--- NOTE | 2017-05-07 18:02 | Internal Med Progress Note ---
Date of Encounter: 05/07/17 Time of Encounter: 18:00 - Assessment and plan (1) Acute respiratory failure with hypoxia Current Visit: Yes Status: Acute Assessment and plan: Fluid overload with undiagnosed COPD in exacerbation. Continue steroid therapy to complete a 5 day burst. Tray gray QID Continue Fluid restrict Needed diuresis yesterday but sodium was 132, now it is 134. Will give one dose of IV lasix today and monitor closely. She is currently having slight worsening in breathing, she does not feel safe to leave. From my physical exam, her lungs sound more clear and air exchange is improved. Still with some rales at bases. Patient scared of delphine some other illness other than Flu. Will monitor. If patient has no acute illness, and remains stable, she can be discharged to SNF. (2) COPD with acute exacerbation Current Visit: Yes Status: Acute Assessment and plan: Acute COPD exacerbation secondary to influenza A pneumonia Continue Tamiflu, Solu-Medrol, DuoNeb's May need pulmonary function tests within 4-6 weeks, the patient has never been diagnosed with COPD but is wheezing very loudly (3) Hyponatremia Current Visit: Yes Status: Acute Assessment and plan: Likely from diuresis that she needed when fluid overloaded. Fluid restrict. Lasix was discontinued /. Recheck in AM. (4) Influenza A Current Visit: Yes Status: Acute Assessment and plan: Severe debility secondary to influenza A with severe upper airway congestion and possible volume overload Tamiflu day #5, will discontinue today after finished therapy. echocardiogram showed an ejection fraction of 65% with mild diastolic dysfunction Hold Lasix /16, strict I's and O's and daily weight (5) Hypokalemia Current Visit: No Status: Acute Assessment and plan: Replete as needed (6) Leukopenia Current Visit: Yes Status: Acute Assessment and plan: stable ranging 3.2-3.8 Qualifiers: Neutropenia type: unspecified Qualified Code(s): D70.9 - Neutropenia, unspecified (7) Debility Current Visit: Yes Status: Acute Assessment and plan: severe debility due to Influenza A Most likely will require rehabilitation ( recommended by PT) after this hospitalization - Subjective Interval history: Breathing has become a little harder today. Fatigue now and she is scared of being discharged, she fears she might come back to hospital. Denies fevers/ chills, chest pain, diaphoresis, n/v. - Constitutional Vitals: Temp Pulse Resp BP Pulse Ox 97.9 F 102 16 136/78 94 05/07/17 16:34 05/07/17 17:53 05/07/17 16:34 05/07/17 17:53 05/07/17 16:34 Exam: - Head Head exam: Present: atraumatic, normocephalic - Eye Eye exam: Present: PERRL, conjuntiva pink, sclera anicteric Pupils: Present: PERRL - Neck Neck exam general surgery: Present: supple, trachea midline. Absent: lymphadenopathy - Respiratory Respiratory exam: Present: CTAB, rales improved Absent: accessory muscle use, rhonchi - Cardiovascular Cardiovascular exam: Present: RRR, +S1, +S2. Absent: diastolic murmur, gallop, rubs, systolic murmur - GI/Abdominal GI/Abdominal exam: Present: normal bowel sounds, soft, no peritoneal signs. Absent: distended, tenderness - Extremities Exam Extremities exam: Present: warm, radial pulses palpable and symmetrical. Absent : calf tenderness, cyanotic, pedal edema - Neurological Exam Neurological exam: Present: CN II-XII intact, oriented X3, no focal deficits. Absent: pronater drift, facial droop, speech deficit - Skin Skin exam: Present: dry, intact Internal Medicine: Result - Labs CBC & Chem 7: 05/07/17 05:51 05/07/17 09:24 Labs: Short CBC 05/07/17 Range/Units 05:51 WBC 9.0 (4.3-11.1) K/mcL Hgb 14.5 (11.5-15.4) g/dL Hct 41.8 (35.3-44.9) % Plt Count 156 (140-400) K/mcL Neutrophils # 7.6 (1.6-8.9) K/mcL BMP 05/07/17 09:24 Sodium 134 L Potassium 4.6 Chloride 97 L Carbon Dioxide 29 BUN 32 H Creatinine 0.98 Glucose 117 H Calcium 9.8 - VTE Documentation of Mechanical Device: Graduated compression elastic hosiery Consult Discharge Plan - Plan Referrals: Fawad Frank MD [Primary Care Provider] -
[2017-05-07] MEDS: traZODone 50 MG TABLET PO SCH (21:30)
[2017-05-07] MEDS: Acetaminophen 325 MG TABLET PO PRN (21:30)
[2017-05-07] MEDS: *HR* LORazepam 1 MG TABLET PO SCH (21:30)
[2017-05-08] MEDS: Ipratropium/Albuterol Neb 3 ML IH SCH ×2 (04:56→10:21)
[2017-05-08 07:19] LABS: Basophils % 0.1 %; Hematocrit 40.7 % (35.3-44.9); Hemoglobin 14.1 g/dL (11.5-15.4); Immature Granulocytes % 1.4 % (0-4); Lymphocytes # 0.5 K/mcL (0.6-4.6); Lymphocytes % 6.1 %; Mean Corpuscular HGB Conc 34.6 g/dL (31.6-35.5); Mean Corpuscular Hemoglobin 32.2 pg (28.0-33.3); Mean Corpuscular Volume 92.9 fL (83.0-100.0); Monocytes # 0.5 K/mcL (0.0-1.3); Monocytes % 6.4 %; Neutrophils # 6.3 K/mcL (1.6-8.9); Platelet Count 252 K/mcL (140-400); Red Blood Count 4.38 M/mcL (3.82-4.97)
[2017-05-08 07:23] LABS: BUN/Creatinine Ratio 42 (6-26); Blood Urea Nitrogen 37 mg/dL (8-23); Carbon Dioxide 27 mEq/L (23-29); Chloride 99 mEq/L (98-107); Glucose 156 mg/dL (70-105); Osmolality,Calculated 290 (280-300); Potassium 4.5 mEq/L (3.5-5.1); Sodium 134 mEq/L (136-145); eGFR For African Americans > 60 (> 60); eGFR For Non-African Americans 60 (> 60)
[2017-05-08 08:13] VITALS: BP 138/83
[2017-05-08] MEDS: MethylPREDNISolone 40 MG/ML VIAL IVP SCH (10:25)
[2017-05-08] MEDS: Fenofibrate 54 MG TABLET PO SCH (10:25)
--- NOTE | 2017-05-08 11:03 | Discharge Summary ---
Date of Encounter: 05/08/17 Time of Encounter: 10:58 - Discharge Diagnosis (1) Acute respiratory failure with hypoxia Priority: Primary Status: Acute (2) COPD with acute exacerbation Priority: Secondary Status: Acute (3) Hyponatremia Priority: Secondary Status: Acute (4) Influenza A Priority: Secondary Status: Acute (5) Hypokalemia Priority: Secondary Status: Acute (6) Leukopenia Priority: Secondary Status: Acute Qualifiers: Neutropenia type: unspecified Qualified Code(s): D70.9 - Neutropenia, unspecified (7) Debility Priority: Secondary Status: Acute - Discharge Medications Prescriptions: LORazepam [Lorazepam] 2 mg PO BID PRN #6 tablet PRN Reason: Anxiety Home Medications: Fenofibrate [Tricor] 54 mg PO QAM 02/14/15 [History] Metoprolol [Lopressor] 50 mg PO BID 02/14/15 [History] Omeprazole [PriLOSEC] 20 mg PO QAM 02/14/15 [History] Polyethylene Glycol 3350 [MiraLAX] 17 gm PO DAILY 02/14/15 [History] TraZODone 50 mg PO HS 02/14/15 [History] Bifidobacterium Infantis [Align] 4 mg PO DAILY 05/03/17 [History] Calcium Carbonate/Vitamin D3 [Oyster Shell Calcium-Vit D Tab] 1 tab PO BID 05/03 [History] Multivit-Min/FA/Lycopen/Lutein [Centrum Silver Tablet] 1 tab PO DAILY 05/03/17 [ History] Simethicone [Gas-X] 80 mg PO TID PRN 05/03/17 [History] Artificial Tears SOLN [Akwa Tears] 1 drop BOTH EYES QID PRN bottle 05/08/17 [Rx ] Ipratropium/Albuterol Neb [Duoneb] 3 ml IH QIDR PRN inhsol 05/08/17 [Rx] LORazepam [Lorazepam] 2 mg PO BID PRN #6 tablet 05/08/17 [Rx] predniSONE [PredniSONE] 10 mg PO DAILY #21 tablet 05/08/17 [Rx] Allergies/Adverse Reactions: 3 Allergy/AdvReac Type Severity Reaction Status Date / Time aspirin AdvReac Gastrointestinal Verified 05/03/17 10:28 Upset magnesium AdvReac Gastrointestinal Verified 05/03/17 10:28 Upset Penicillins [PCN] AdvReac Gastrointestinal Verified 05/03/17 10:28 Upset Date of admission: 04/30/17 21:16 Primary care physician: Fawad Frank MD Consults: 04/30/17 21:50 Consult to Occupational Therapy [CONS] Routine Comment: Evaluate, develop and implement POC Reason for Consult: ambulate and assess Consult to Physical Therapy [CONS] Routine Comment: Evaluate, develop and implement POC Reason for Consult: ambulate assess for placement need 05/03/17 12:21 Consult to Resaw Operator [CONS] Routine Reason for SW Consult: PT/OT recommend rehab Discharging clinician: Cipriano Parrish - Patient Status Disposition: Transfer SNF Condition: Good Functional capacity at discharge: uses cane/walker Overall status at discharge: patient is progressing back to baseline - Discharge Instructions Follow Up With: Fawad Frank MD [Primary Care Provider] - Forms: ED Satisfaction Letter - Diet and Activity Activity: as per physical therapy Diet: advance to your usual diet, low fat, low cholesterol Interval History: Ms. Alvarenga is a 86 year old female who presented to the ER via EMS from urgent care due to shortness of breath and a cough. Has Influenza A and was weak and does not feel like eating. Chest x-ray showed no acute process. Patient was admitted for influenza viral pneumonia. She was started on tamiflu, duo nebs. She did show signs of fluid overload and required some diuresis and fluid restriction, An echocardiogram showed EF 65% with mild diastolic dysfunction. Also suspicious that patient has undiagnosed COPD based on physical exam and so she was started on Solu Medrol. PT/OT worked with patient as she had weakness. She clinically improved, afebrile without any respiratory distress, cough improved as well. She was discharged to SNF in stable condition. She will need PFT in 4-6 weeks. Hospital course: Ms. Alvarenga is a 86 year old female - Time Spent with Patient Total time spent providing and/or coordinating discharge services: - Constitutional Vitals: Temp Pulse Resp BP Pulse Ox 98.1 F 72 16 138/83 97 05/08/17 08:09 05/08/17 08:09 05/08/17 10:21 05/08/17 08:09 05/08/17 10:21 General appearance: Present: A&O X 3, pleasant, no acute distress, answers questions appropriately Exam: - Head Head exam: Present: atraumatic, normocephalic - Eye Eye exam: Present: PERRL, conjuntiva pink, sclera anicteric Pupils: Present: PERRL - Neck Neck exam general surgery: Present: supple, trachea midline. Absent: lymphadenopathy - Respiratory Respiratory exam: Present: CTAB, rales improved Absent: accessory muscle use, rhonchi - Cardiovascular Cardiovascular exam: Present: RRR, +S1, +S2. Absent: diastolic murmur, gallop, rubs, systolic murmur - GI/Abdominal GI/Abdominal exam: Present: normal bowel sounds, soft, no peritoneal signs. Absent: distended, tenderness - Extremities Exam Extremities exam: Present: warm, radial pulses palpable and symmetrical. Absent : calf tenderness, cyanotic, pedal edema - Neurological Exam Neurological exam: Present: CN II-XII intact, oriented X3, no focal deficits. Absent: pronater drift, facial droop, speech deficit - Skin Skin exam: Present: dry, intact - VTE Documentation of Mechanical Device: Graduated compression elastic hosiery
--- NOTE | 2017-05-08 11:17 | Physician Discharge Referral ---
ExtendedCare Referral Info Institutional Level of Care: Skilled - Diagnosis (1) Acute respiratory failure with hypoxia Priority: Primary Status: Acute (2) COPD with acute exacerbation Priority: Secondary Status: Acute (3) Hyponatremia Priority: Secondary Status: Acute (4) Influenza A Priority: Secondary Status: Acute (5) Hypokalemia Priority: Secondary Status: Acute (6) Leukopenia Priority: Secondary Status: Acute (7) Debility Priority: Secondary Status: Acute - Transfer Medications Prescriptions: LORazepam [Lorazepam] 2 mg PO BID PRN #6 tablet PRN Reason: Anxiety predniSONE [PredniSONE] 10 mg PO DAILY #21 tablet Home Medications: Fenofibrate [Tricor] 54 mg PO QAM 02/14/15 [History] Metoprolol [Lopressor] 50 mg PO BID 02/14/15 [History] Omeprazole [PriLOSEC] 20 mg PO QAM 02/14/15 [History] Polyethylene Glycol 3350 [MiraLAX] 17 gm PO DAILY 02/14/15 [History] TraZODone 50 mg PO HS 02/14/15 [History] Bifidobacterium Infantis [Align] 4 mg PO DAILY 05/03/17 [History] Calcium Carbonate/Vitamin D3 [Oyster Shell Calcium-Vit D Tab] 1 tab PO BID 05/03 [History] Multivit-Min/FA/Lycopen/Lutein [Centrum Silver Tablet] 1 tab PO DAILY 05/03/17 [ History] Simethicone [Gas-X] 80 mg PO TID PRN 05/03/17 [History] Artificial Tears SOLN [Akwa Tears] 1 drop BOTH EYES QID PRN bottle 05/08/17 [Rx ] Ipratropium/Albuterol Neb [Duoneb] 3 ml IH QIDR PRN inhsol 05/08/17 [Rx] LORazepam [Lorazepam] 2 mg PO BID PRN #6 tablet 05/08/17 [Rx] predniSONE [PredniSONE] 10 mg PO DAILY #21 tablet 05/08/17 [Rx] Allergies/Adverse Reactions: 3 Allergy/AdvReac Type Severity Reaction Status Date / Time aspirin AdvReac Gastrointestinal Verified 05/03/17 10:28 Upset magnesium AdvReac Gastrointestinal Verified 05/03/17 10:28 Upset Penicillins [PCN] AdvReac Gastrointestinal Verified 05/03/17 10:28 Upset - Respiratory Orders Smoking Cessation: Smoking cessation has been advised. For more information, call the [place] Tobacco Quit Line at 4-627-OJHX-NOW. - Ancillary Orders May use pressure relief devices daily prn, May go on RUPA w/family/respon alliance party w /meds at nurse discretion PRN - Mobility Orders Other (as jper physical therapy) - Rehabiliation Orders Rehab Orders: ROM Exercises, Evaluation for Physical Therapy, Evaluation for Occupational Therapy - Treatments Skin tear care topically daily PRN per policy, May check for fecal impaction rectally daily PRN, Fleet enema rectally every other day PRN cleansing purposes - Diet Orders House Supplement per Dietary: Advance to usual diet CERTIFICATION: I certify that the transfer of the above named patient to an Extended Care Facility is necessary for the continuing treatment of the diagnosis listed. The above information is true and accurate reflection of patient's current condition. Confidential - Redisclosure prohibited without a patient's written consent.
[2017-05-10 09:42] LABS: Mycoplasma pneumoniae IgG 0.04 U/L (<=0.09)
[2017-05-10 14:35] LABS: Procalcitonin 0.08 ng/mL (<=0.10)
== END 2017-05-08 13:29 | DRG 193 ==
LOC: EMEROO 16:55 → 3BNU 16:55 → SUATTDRO 21:16
PROVIDERS: ADMIT Nurse Practitioner Family; ATTEND Student in an Organized Health Care Education/Training Program